=== PATIENT | female | born 1965 | race Hispanic/Latino ===

== ENCOUNTER 2018-05-17 15:32 | Emergency (ER) | payer OTHER | END 2018-05-17 16:39 | disposition home or self-care (01) | LOC: EDH 15:32 | DX: G89.29 Other chronic pain (principal); M25.511 Pain in right shoulder; I10 Essential (primary) hypertension; F41.9 Anxiety disorder, unspecified | CPT/HCPCS: 99281 ==

== ENCOUNTER 2018-08-07 15:33 | Emergency (ER) | payer OTHER ==
[2018-08-07] MEDS ORDERED: KETOROLAC TROMETHAMINE 30MG/ML ONE (15:59)
== END 2018-08-07 16:27 | disposition home or self-care (01) ==
LOC: EDH 15:33
DX: S93.692A Other sprain of left foot, initial encounter (principal); S99.912A Unspecified injury of left ankle, initial encounter; I10 Essential (primary) hypertension; F41.9 Anxiety disorder, unspecified; Z90.710 Acquired absence of both cervix and uterus; W01.0XXA Fall on same level from slipping, tripping and stumbling without subsequent striking against object, initial encounter; Y93.01 Activity, walking, marching and hiking; Y92.89 Other specified places as the place of occurrence of the external cause; Y99.8 Other external cause status
CPT/HCPCS: 73610; 73630; 96372; 99283; J1885

== ENCOUNTER → 2020-10-11 | Outpatient (CLI) | payer OTHER | END | disposition home or self-care (01) | LOC: OIH 09:41 | PROVIDERS: ATTEND Family Medicine | DX: M19.042 Primary osteoarthritis, left hand (principal); M77.32 Calcaneal spur, left foot | CPT/HCPCS: 73120; 73620 ==